=== PATIENT | female | born 1985 | race African-American/Black ===

== ENCOUNTER 2017-04-06 12:20 | Emergency (ER) | payer OTHER ==
[2017-04-06] MEDS ORDERED: HYDROcodone/Acetaminophen 5/325 mg Tablet ONE (13:52)
[2017-04-06] MEDS ORDERED: Diazepam 5 MG TAB ONE (13:52)
== END 2017-04-06 13:08 | disposition home or self-care (01) ==
LOC: ERS 12:20
DX: M54.5 Low back pain (principal); E11.9 Type 2 diabetes mellitus without complications; F17.210 Nicotine dependence, cigarettes, uncomplicated; Z79.84 Long term (current) use of oral hypoglycemic drugs; Z79.899 Other long term (current) drug therapy
CPT/HCPCS: 99283

== ENCOUNTER 2019-04-02 16:17 | Emergency (ER) | payer SELFPAY ==
--- NOTE | 2019-04-02 16:33 | RAD ---
Exam:2 views left forearm HISTORY: Hit arm with door today. Numbness. COMPARISON: None FINDINGS: No fracture, cortical irregularity or periosteal reaction. IMPRESSION: No fracture.
[2019-04-02] MEDS ORDERED: Ibuprofen 200 MG TAB ONE (18:11)
== END 2019-04-02 18:23 | disposition home or self-care (01) ==
LOC: ERS 16:17
DX: S50.12XA Contusion of left forearm, initial encounter (principal); F17.210 Nicotine dependence, cigarettes, uncomplicated; E11.9 Type 2 diabetes mellitus without complications; W22.8XXA Striking against or struck by other objects, initial encounter

== ENCOUNTER 2019-06-15 17:12 | Emergency (ER) | payer OTHER ==
[2019-06-15] MEDS ORDERED: Promethazine HCl 25 MG/ML VIAL ONE (17:57)
[2019-06-15] MEDS ORDERED: Acetaminophen 325 MG TAB ONE (17:57)
[2019-06-15] MEDS ORDERED: Ondansetron ODT 4 MG TAB ONE (18:14)
[2019-06-15] MEDS ORDERED: Acetaminophen 650 MG/20.3 ML UDCUP ONE (18:14)
== END 2019-06-15 18:36 | disposition home or self-care (01) ==
LOC: ERS 17:12
DX: Z20.828 Contact with and (suspected) exposure to other viral communicable diseases (principal); R11.2 Nausea with vomiting, unspecified; E11.9 Type 2 diabetes mellitus without complications; F17.210 Nicotine dependence, cigarettes, uncomplicated
CPT/HCPCS: 87081; 87430; 87804; 99283; J2550; Q0162; U0001